=== PATIENT | male | born 1990 | race Caucasian/White ===

== ENCOUNTER 2019-01-17 00:31 | Emergency (ER) | payer MEDICAID ==
[~2019-01-17] VITALS: Ht 177.8 cm; Wt 65.9 kg
[2019-01-17] MEDS ORDERED: acetaminophen 325mg tablet PO ONE (00:40)
[2019-01-17] MEDS ORDERED: ibuprofen tablet 400 MG TABLET PO ONE (00:40)
[2019-01-17] MEDS ORDERED: ONDA4TAB6 PO (01:02)
[2019-01-17] MEDS ORDERED: HYDR-4353 PO (01:03)
[2019-01-17 01:15] VITALS: BP 121/91
[2019-01-17] MEDS ORDERED: CEPH-572 PO (01:52)
== END 2019-01-17 02:16 ==
LOC: ER 00:32
DX: S82.61XA Displaced fracture of lateral malleolus of right fibula, initial encounter for closed fracture (principal); S92.351A Displaced fracture of fifth metatarsal bone, right foot, initial encounter for closed fracture; F17.200 Nicotine dependence, unspecified, uncomplicated; F12.90 Cannabis use, unspecified, uncomplicated; Z79.899 Other long term (current) drug therapy; Z56.0 Unemployment, unspecified; W22.8XXA Striking against or struck by other objects, initial encounter; Y93.89 Activity, other specified; Y92.89 Other specified places as the place of occurrence of the external cause; Y99.8 Other external cause status
CPT/HCPCS: 29515; 73590; 73600; 73620; 99284

== ENCOUNTER 2019-01-31 02:44 | Emergency (ER) | payer MEDICAID ==
[~2019-01-31] VITALS: Ht 177.8 cm; Wt 70.5 kg
[~2019-01-31 02:44] MED LIST: HYDR-4353 PO; ONDA4TAB6 PO
--- NOTE | 2019-01-31 03:18 | NUR ---
PEDAL PULSE PULSE WAS FOUND VIA DOPPLER. 3+ PITTING EDEMA
[2019-01-31 04:11] LABS: D-DIMER 1.03 MG/L FEU (0-0.50)
--- NOTE | 2019-01-31 04:23 | NUR ---
HAWA CALLED BACK AT 04:23 SAID SHE WAS ON HER [address]
[2019-01-31 05:04] VITALS: BP 132/52
== END 2019-01-31 05:43 | disposition home or self-care (01) ==
LOC: ER 02:44
DX: S90.121A Contusion of right lesser toe(s) without damage to nail, initial encounter (principal); F12.90 Cannabis use, unspecified, uncomplicated; Z56.0 Unemployment, unspecified; X58.XXXA Exposure to other specified factors, initial encounter; Y93.89 Activity, other specified; Y92.89 Other specified places as the place of occurrence of the external cause; Y99.9 Unspecified external cause status
CPT/HCPCS: 36415; 85379; 93971; 99284

== ENCOUNTER 2019-11-20 14:15 | Emergency (ER) | payer MEDICAID ==
[~2019-11-20] VITALS: Ht 180.3 cm; Wt 72.7 kg
[~2019-11-20 14:15] MED LIST changes: -HYDR-4353 PO
[2019-11-20 14:46] VITALS: BP 113/83
[2019-11-20] MEDS ORDERED: amox tr/potassium clavulanate 875/125mg TAB PO ONE (15:00)
[2019-11-20] MEDS ORDERED: ondansetron 4mg rapidly disintigrating tab PO ONE (15:00)
[2019-11-20] MEDS ORDERED: AMOX-419 PO (15:07)
== END 2019-11-20 15:21 | disposition home or self-care (01) ==
LOC: ER 14:15
DX: S51.811A Laceration without foreign body of right forearm, initial encounter (principal); S51.812A Laceration without foreign body of left forearm, initial encounter; F12.90 Cannabis use, unspecified, uncomplicated; Z56.0 Unemployment, unspecified; W54.0XXA Bitten by dog, initial encounter; Y93.89 Activity, other specified; Y92.89 Other specified places as the place of occurrence of the external cause; Y99.9 Unspecified external cause status
CPT/HCPCS: 12002; 99283